=== PATIENT | female | born 1950 | race Hispanic/Latino ===

== ENCOUNTER 2016-09-25 11:19 | Outpatient (CLI) | payer MEDICARE ==
[2016-09-25 13:07] LABS: Blood Urea Nitrogen 11 mg/dL (7-17)
[2016-09-25] MEDS ORDERED: NACL ONE (14:30)
--- NOTE | 2016-09-25 15:52 | Cat Scan Report ---
CT ABDOMEN AND PELVIS WITH CONTRAST INDICATION: Lower abdominal pain, diarrhea, nausea, vomiting. COMPARISON: None similar. FINDINGS: Abdomen and pelvis CT performed following oral contrast and intravenous administration of 100 cc of Omnipaque 300. LUNG BASES: Top normal heart size. Few coronary calcifications. Increased AP chest diameter. Nonspecific distal esophageal wall thickening, not excluded for gastroesophageal reflux and/or hiatal hernia, amongst others. ABDOMEN: Right hepatic lobe 17.5 cm in midclavicular length. Subtle fatty hepatic infiltration difficult to entirely exclude. Otherwise unremarkable liver, spleen, gallbladder, pancreas, nonaneurysmal abdominal aorta with atherosclerotic aortoiliac calcifications, IVC and non-hydronephrotic kidneys. Indeterminate 8mm left renal cortical hypodensity superomedially. Mild bilateral adrenal nodularity, slightly hypodense and measuring up to 1.4 cm on the left, axial image 61. No ascites. Few small, predominantly subcentimeter mesenteric and retroperitoneal lymph nodes noted, the largest elongated, approximately 0.7 x 1.7 cm anterior to the aorta, axial image 114, series 2. As on axial images 138-177, inflammatory fat stranding noted around a 2.7 cm focus of mesenteric fat in the left hemiabdomen with adjacent opacified nonobstructed small bowel loops laterally. Mild colonic stool. PELVIS: Uterus surgically absent. Unremarkable urinary bladder. Mild rectosigmoid stool. No free fluid or significant adenopathy. Demineralized bones and multilevel imaged spinal degenerative changes, including lower thoracic-upper lumbar bridging osteophytes/DISH, mild kyphosis and L5-S1 disc narrowing with vacuum phenomenon. CONCLUSION: 1. Left hemiabdomen mesenteric fat necrosis, as described. No evidence of bowel obstruction. 2. Other incidental findings, as above. Thank you for the opportunity to participate in this patient's care.
== END 2016-09-25 11:20 | disposition home or self-care (01) ==
LOC: CT 11:19
PROVIDERS: ATTEND Internal Medicine Gastroenterology
DX: R19.7 Diarrhea, unspecified (principal); R11.2 Nausea with vomiting, unspecified; K59.00 Constipation, unspecified
CPT/HCPCS: 36415; 74177; 82565; 84520; Q9967